=== PATIENT | male | born 1950 | race Asian ===

== ENCOUNTER 2024-09-27 11:33 | Inpatient (IN) | payer MEDICAID ==
[~2024-09-27] VITALS: Ht 165.1 cm; Wt 71.8 kg
[2024-09-27] MEDS: LABETALOL HCL 5 MG/ML 20 ML VIAL IVP ONE (12:06)
[2024-09-27] MEDS ORDERED: IOHEXOL 350 MG/ML 100 ML VIAL ONE (12:12)
[2024-09-27] MEDS ORDERED: SODIUM CHLORIDE 0.9% 100 ML ONE (12:12)
[2024-09-27 12:26] LABS: BASOPHILS % (AUTO) 1.1 % (0.0-2.0); HEMATOCRIT 42.9 % (41-53); LYMPHOCYTES # (AUTO) 2.2 K/uL (1.0-4.8); LYMPHOCYTES % (AUTO) 39.4 % (22.0-44.0); MEAN CORPUSCULAR HEMOGLOBIN 30.6 pg (26.0-34.0); MEAN CORPUSCULAR HGB CONC 34.9 G/dL (31.0-37.0); MEAN CORPUSCULAR VOLUME 88 fL (80-100); MONOCYTES # (AUTO) 0.5 K/uL (0.1-1.0); MONOCYTES % (AUTO) 9.6 % (2.0-9.0); NEUTROPHILS # (AUTO) 2.6 K/uL (1.8-7.7); NEUTROPHILS % (AUTO) 45.9 % (40.0-70.0); PLATELET COUNT (AUTO) 201 K/uL (150-450); RED BLOOD CELL COUNT(AUTO) 4.88 MIL/uL (4.50-5.90); RED CELL DISTRIBUTION WIDTH 13.8 % (11.5-14.5); WHITE BLOOD COUNT (AUTO) 5.6 K/uL (4.5-11.0)
[2024-09-27 12:32] LABS: PH,URINE DRUG SCREEN 6.5 (5.0-8.0)
[2024-09-27 12:32] LABS: CALCIUM, TOTAL 9.1 mg/dL (8.8-10.5); CARBON DIOXIDE 23 mmol/L (22-29); CREATININE 0.91 mg/dL (0.60-1.30); GLOMERULAR FILTR. RATE CALC > 60 mL/min (>60); GLUCOSE,RANDOM 142 mg/dL (70-110); POTASSIUM 3.8 mmol/L (3.5-5.1); SODIUM SERUM 133 mmol/L (136-145); UREA NITROGEN, BLOOD 16 mg/dL (7-18)
[2024-09-27 12:37] LABS: ALCOHOL, URINE DRUG SCREEN NEGATIVE (NEGATIVE); AMPHET/METH SCREEN,URINE NEGATIVE (NEGATIVE); BARBITURATE SCREEN, URINE NEGATIVE (NEGATIVE); BENZODIAZEPINES SCREEN,URINE NEGATIVE (NEGATIVE); CANNABINOID SCREEN,URINE NEGATIVE (NEGATIVE); COCAINE SCREEN,URINE NEGATIVE (NEGATIVE); METHADONE SCREEN, URINE NEGATIVE (NEGATIVE); OPIATE SCREEN,URINE NEGATIVE (NEGATIVE); PHENCYCLIDINE SCREEN,URINE NEGATIVE (NEGATIVE)
[2024-09-27] MEDS: NITROGLYCERIN 2% (1 GM=INCH) OINTMENT PACKET TP ONE (12:39)
[2024-09-27] MEDS: ASPIRIN 81 MG CHEWABLE TABLET PO ONE (12:39)
[2024-09-27 12:42] LABS: ANION GAP 11 mmol/L (8-16); CHLORIDE 100 mmol/L (98-107); TROPONIN I-HIGH SENSITIVITY 16 ng/L (<76)
[2024-09-27 15:40] LABS: TROPONIN I-HIGH SENSITIVITY 1727 ng/L (<76)
[2024-09-27] MEDS ORDERED: HEPARIN SODIUM,PORCINE 5,000 UNITS/ML VIAL IVP PRN (16:15)
[2024-09-27] MEDS ORDERED: MAA ALBUMIN AGGREGATED TC99M/UD<10MCL ISOTOPE 1 EA INJ INJ ONE (16:40)
[2024-09-27] MEDS ORDERED: NITROGLYCERIN 0.4 MG SUBLINGUAL TABLET #25 SL PRN (17:15)
[2024-09-27] MEDS ORDERED: MAGNESIUM SULFATE 4 GM/WATER 100 ML IV PRN (17:30)
[2024-09-27] MEDS ORDERED: MAGNESIUM OXIDE 400 MG TABLET PO PRN (17:30)
[2024-09-27] MEDS ORDERED: MAGNESIUM SULFATE 2 GM/WATER 50 ML IV PRN (17:30)
[2024-09-27 18:07] LABS: BASOPHILS % (AUTO) 1.3 % (0.0-2.0); EOSINOPHILS % (AUTO) 3.4 % (1.0-6.0); HEMATOCRIT 41.2 % (41-53); HEMOGLOBIN 14.2 g/dL (13.5-17.5); LYMPHOCYTES # (AUTO) 1.5 K/uL (1.0-4.8); LYMPHOCYTES % (AUTO) 28.1 % (22.0-44.0); MEAN CORPUSCULAR HEMOGLOBIN 30.2 pg (26.0-34.0); MEAN CORPUSCULAR HGB CONC 34.6 G/dL (31.0-37.0); MEAN CORPUSCULAR VOLUME 88 fL (80-100); MONOCYTES # (AUTO) 0.4 K/uL (0.1-1.0); MONOCYTES % (AUTO) 7.8 % (2.0-9.0); NEUTROPHILS # (AUTO) 3.2 K/uL (1.8-7.7); NEUTROPHILS % (AUTO) 59.4 % (40.0-70.0); PLATELET COUNT (AUTO) 228 K/uL (150-450); RED BLOOD CELL COUNT(AUTO) 4.71 MIL/uL (4.50-5.90); RED CELL DISTRIBUTION WIDTH 13.5 % (11.5-14.5); WHITE BLOOD COUNT (AUTO) 5.4 K/uL (4.5-11.0)
[2024-09-27] MEDS: ATORVASTATIN CALCIUM 40 MG TABLET PO SCH (18:15)
[2024-09-27 18:16] LABS: ALBUMIN 3.8 g/dL (3.4-5.0); MAGNESIUM 1.9 mg/dL (1.80-2.40)
[2024-09-27 18:18] VITALS: BP 153/55; PULSE 57; RESP 18; TEMP 97.9; O2SAT 97
[2024-09-27 18:20] LABS: PROTHROMBIN TIME 10.6 SEC (9.4-11.6)
[2024-09-27] MEDS: HEPARIN SODIUM,PORCINE 5,000 UNITS/ML VIAL IVP PRN (19:26)
[2024-09-27] MEDS: HEPARIN SODIUM 25000 UNITS/D5W 250 ML IV PRN (19:30)
[2024-09-27 20:57] VITALS: BP 140/81; PULSE 62; RESP 18; TEMP 98.6; O2SAT 99
[2024-09-27] MEDS: METOPROLOL TARTRATE 25 MG TABLET PO SCH (21:00)
[2024-09-27 23:51] VITALS: BP 135/83; PULSE 53; RESP 19; TEMP 98.2; O2SAT 98
[2024-09-28 04:07] LABS: HEPATITIS C AB (EIA) Non Reactive (Non Reactive)
[2024-09-28 04:09] VITALS: BP_SYST 104; BP_SYST 133; BP_DIAS 51; BP_DIAS 81; PULSE 54; PULSE 60; RESP 18; TEMP 97.3; TEMP 97.7; O2SAT 100; O2SAT 98
[2024-09-28 07:45] LABS: BASOPHILS % (AUTO) 1.3 % (0.0-2.0); HEMATOCRIT 39.8 % (41-53); HEMOGLOBIN 13.8 g/dL (13.5-17.5); LYMPHOCYTES % (AUTO) 34.6 % (22.0-44.0); MEAN CORPUSCULAR HEMOGLOBIN 30.5 pg (26.0-34.0); MEAN CORPUSCULAR HGB CONC 34.6 G/dL (31.0-37.0); MEAN CORPUSCULAR VOLUME 88 fL (80-100); MONOCYTES # (AUTO) 0.6 K/uL (0.1-1.0); MONOCYTES % (AUTO) 10.5 % (2.0-9.0); NEUTROPHILS # (AUTO) 2.8 K/uL (1.8-7.7); NEUTROPHILS % (AUTO) 48.6 % (40.0-70.0); PLATELET COUNT (AUTO) 192 K/uL (150-450); RED CELL DISTRIBUTION WIDTH 13.7 % (11.5-14.5); WHITE BLOOD COUNT (AUTO) 5.8 K/uL (4.5-11.0)
[2024-09-28] MEDS: ASPIRIN 81 MG DR TABLET PO SCH (08:10)
[2024-09-28] MEDS: FAMOTIDINE 20 MG TABLET PO ONE (08:10)
[2024-09-28] MEDS: MethylPREDNISolone SOD SUCC 125 MG/2 ML VIAL IVP ONE ×2 (08:11→14:03)
[2024-09-28 08:14] VITALS: BP 134/61; PULSE 56; RESP 18; TEMP 98.2; O2SAT 98
[2024-09-28 08:24] LABS: CHLORIDE 100 mmol/L (98-107); POTASSIUM 3.6 mmol/L (3.5-5.1); SODIUM SERUM 135 mmol/L (136-145)
[2024-09-28 08:26] LABS: ANION GAP 8 mmol/L (8-16); CALCIUM, TOTAL 9.3 mg/dL (8.8-10.5); CARBON DIOXIDE 27 mmol/L (22-29); CREATININE 0.98 mg/dL (0.60-1.30); GLOMERULAR FILTR. RATE CALC > 60 mL/min (>60); GLUCOSE,RANDOM 98 mg/dL (70-110); UREA NITROGEN, BLOOD 14 mg/dL (7-18)
[2024-09-28 08:29] LABS: TROPONIN I-HIGH SENSITIVITY 1817 ng/L (<76)
[2024-09-28 08:30] LABS: MAGNESIUM 1.9 mg/dL (1.80-2.40)
[2024-09-28 08:31] LABS: CHOL/HDL RATIO 3.8 (4.2-7.3); THYROID STIMULATING HORMONE 0.78 uIU/mL (0.36-3.74)
[2024-09-28 12:34] VITALS: BP 129/72; PULSE 62; RESP 18; TEMP 98; O2SAT 98
[2024-09-28] MEDS: DiphenhydrAMINE HCL 50 MG/ML VIAL IVP ONE (14:03)
[2024-09-28] MEDS ORDERED: SODIUM BICARBONATE 50 MEQ/50 ML VIAL ONE (14:24)
[2024-09-28] MEDS ORDERED: LIDOCAINE/PF 1% 30 ML VIAL ONE (14:24)
[2024-09-28] MEDS ORDERED: IOHEXOL 300 MG/ML 100 ML VIAL ONE (14:24)
[2024-09-28] MEDS ORDERED: HEPARIN SODIUM 1000 UNITS/NS 1,000 ML ONE (14:24)
[2024-09-28] MEDS ORDERED: VERAPAMIL HCL 2.5 MG/ML 2 ML VIAL ONE (14:24)
[2024-09-28] MEDS ORDERED: NITROGLYCERIN 50 MG/D5% WATER 250 ML ONE (14:24)
[2024-09-28] MEDS ORDERED: MIDAZOLAM HCL 2 MG/2 ML VIAL ONE (15:09)
[2024-09-28] MEDS ORDERED: FentaNYL CITRATE PF 100 MCG/2 ML VIAL ONE (15:09)
[2024-09-28] MEDS ORDERED: MethylPREDNISolone SOD SUCC 125 MG/2 ML VIAL ONE (15:13)
[2024-09-28] MEDS: VERAPAMIL HCL 2.5 MG/ML 2 ML VIAL IARTER ONE (15:48)
[2024-09-28] MEDS: HEPARIN SODIUM,PORCINE 1,000 UNITS/ML 10 ML VIAL IARTER ONE (15:49)
[2024-09-28] MEDS: HEPARIN SODIUM 2,000 UNITS in HEPARIN SODIUM 1000 UNITS/NS 1,000 ML IARTER ONE (15:49)
[2024-09-28 15:50] VITALS: BP 121/64; PULSE 62
[2024-09-28] MEDS: NITROGLYCERIN/D5W 50 MG/250 ML IV BOTTLE IARTER ONE (15:50)
[2024-09-28] MEDS: FentaNYL CITRATE PF 100 MCG/2 ML VIAL IVP ONE (15:51)
[2024-09-28] MEDS: MIDAZOLAM HCL 2 MG/2 ML VIAL IVP ONE (15:51)
[2024-09-28] MEDS: LIDOCAINE 1% 30 ML/SOD BICARB 8.4% 4 ML SQ ONE (15:52)
[2024-09-28] MEDS: HEPARIN SODIUM,PORCINE 1,000 UNITS/ML 10 ML VIAL IVP ONE (15:52)
[2024-09-28] MEDS: IOHEXOL 300 MG/ML 100 ML VIAL ICOR ONE (15:53)
[2024-09-28] MEDS: SODIUM CHLORIDE 0.9% 500 ML IV ONE (15:55)
[2024-09-28] MEDS: IOHEXOL 300 MG/ML 100 ML VIAL IARTER ONE (15:56)
[2024-09-28] MEDS ORDERED: ASPIRIN 81 MG CHEWABLE TABLET ONE (16:11)
[2024-09-28] MEDS ORDERED: ATROPINE SULFATE 0.1 MG/ML 10 ML SYRINGE IVP ONE (16:17)
[2024-09-28] MEDS ORDERED: EPINEPHrine 5 MG in DEXTROSE 5%-WATER 245 ML IV PRN (16:45)
[2024-09-28] MEDS ORDERED: ETOMIDATE 2 MG/ML 10 ML VIAL IV ONE ×2 (16:55→17:26)
[2024-09-28] MEDS ORDERED: EPINEPHrine 1:10,000 [1 MG/10 ML] SYRINGE IVP ONE ×2 (16:55→17:26)
[2024-09-28] MEDS ORDERED: ROCURONIUM BROMIDE 10 MG/ML 5 ML VIAL IV ONE ×2 (16:55→17:26)
[2024-09-28] MEDS ORDERED: METOPROLOL TARTRATE 25 MG TABLET PO SCH (21:00)
== END 2024-09-28 16:56 | DRG 174 ==
LOC: EMS 11:36 → EDH 14:43 → 5S 17:30
PROVIDERS: ADMIT Internal Medicine; ATTEND Internal Medicine
PROC: 027035Z Dilation of Coronary Artery, One Artery with Two Drug-eluting Intraluminal Devices, Percutaneous Approach (ICD-10-PCS; principal; 2024-09-28)
PROC: 4A023N7 Measurement of Cardiac Sampling and Pressure, Left Heart, Percutaneous Approach (ICD-10-PCS; 2024-09-28)
PROC: B2111ZZ Fluoroscopy of Multiple Coronary Arteries using Low Osmolar Contrast (ICD-10-PCS; 2024-09-28)
PROC: 5A12012 Performance of Cardiac Output, Single, Manual (ICD-10-PCS; 2024-09-28)
PROC: 5A12012 Performance of Cardiac Output, Single, Manual (ICD-10-PCS; 2024-09-28)
DX: I21.4 Non-ST elevation (NSTEMI) myocardial infarction (principal); I46.9 Cardiac arrest, cause unspecified; I50.33 Acute on chronic diastolic (congestive) heart failure; E87.1 Hypo-osmolality and hyponatremia; I47.10 Supraventricular tachycardia, unspecified; I10 Essential (primary) hypertension; M24.411 Recurrent dislocation, right shoulder; G89.29 Other chronic pain; Z91.041 Radiographic dye allergy status
CPT/HCPCS: 71045; 71250; 78580; 80048; 80061; 80307; 82040; 82271; 83735; 84443; 84484; 85025; 85379; 85610; 85730; 86803; 87340; 92920; 92928; 92950; 93005; 93306; 96374; 99285; A9540; J0171; J0461; J1200; J1644; J2250; J2919; J3010; J3490; J7050; J7060; Q9967; 36415-L1; 36415-TC; Z7610